=== PATIENT | male | born 1980 | race Caucasian/White ===

== ENCOUNTER 2016-10-22 18:24 | Emergency (ER) | payer MEDICAID, OTHER ==
[~2016-10-22] VITALS: Ht 190.5 cm; Wt 95.5 kg
[~2016-10-22 18:24] MED LIST: DOCU50CA2 PO; INSLIS SUBQ; INSU100V7 SUBQ; OXYC5TAB72 PO; SERT50TA9 PO
[2016-10-22 18:34] VITALS: BP 117/84; PULSE 98; RESP 14; O2SAT 97
--- NOTE | 2016-10-22 19:15 | ED.REPORT ---
HPI-General Illness Date of Service Oct 22, 2016 ED Provider: Nader Brown DO Patient is a 36 year old male with a history of diabetes who presents to the ED stating that he needs fast acting insulin. The patient reports that he was at Crisis who told him he needed Humalog and a basil. He states he doesn't have a basil anymore due to the police confiscating it after being arrested. Patient has no other complaints at this time Nursing Notes Stated Complaint: NEEDS INSULIN & BASIL Chief Complaint: General Complaint Nursing Notes Reviewed: Yes Allergies: Coded Allergies: Sulfa (Sulfonamide Antibiotics) (Verified Allergy, Severe, RASH AND AIRWAY PROBLEMS, 02/04/15) Scheduled Insulin Glargine (Lantus U100 Insulin Vial) 100 Unit/Ml Vial 30 UNIT SUBQ BID continue with current basil insulin 30 units bid. Insulin Human Lispro (HumaLOG U100 Insulin Vial) 100 Unit/Ml Unit 0 SUBQ TID- INSULIN Check blood sugars before meals and at bedtime. Use correction factor only before meals. Blood Sugar Lispro Correction: <151, 0 units; 151-175, 1 unit; 176-200, 2 units; 201-225, 3 units; 226-250, 4 units; 251-275, 5 units; 276-300 , 6 units; 301-325, 7 units; 326-350, 8 units; 351-375, 9 units; 376-400, 10 units; >400, 12 units. Sertraline HCl (Sertraline) 50 Mg Tablet 50 MG PO DAILY Scheduled PRN Docusate Sodium (Colace) 50 Mg Capsule 50 MG PO BID PRN PRN For Constipation oxyCODONE (oxyCODONE) 5 Mg Tablet 5 MG PO Q4H PRN PRN For Pain General Time Seen by MD: 19:15 Chief Complaint Other (hyperglycemia) Hx Obtained From: Patient Arrived By: Walk-in Sudden in Onset?: Yes Onset Occurred: 1 week ago Context of Onset: Medication reaction Severity: Current: No pain currently Similar Sx Previous: Yes Past Medical History Past Medical History 1. Type 1 diabetes mellitus with recent admissions for diabetic ketoacidosis. 2. Recent soft tissue infections requiring IV antibiotics. 3. History of MRSA colonization. 4. History of rash secondary to SULFA drugs. Reports: Diabetes mellitus Past Surgical History hand and inguinal hernia Smoking History Former Smoker Social History Alcohol Use: "Social" Drug Use: Denies drug use, In recovery, Other Occupation lives with girlfriend and works at the [employer] Ambulatory Status Independent Review of Systems +out of insulin Full Review of Systems Constitutional: Denies: Chills, Fever Respiratory: Denies: Non-productive cough, Shortness of breath GI: Denies: Diarrhea, Vomiting Skin: Denies Itching, Denies Rash Neurologic: Denies: Numbness, Weakness Complete sys rev & neg: except as marked. Physical Exam Vital Signs Vital Signs Date Time Temp Pulse Resp B/P Pulse Ox O2 Delivery O2 Flow Rate FiO2 10/22/16 22:30 94 121/81 98 Room Air 10/22/16 18:34 37.1 98 14 117/84 97 Room Air Initial VS: Reviewed General/Constitutional: Awake, Alert, No acute distress Head / Eyes: Atraumatic, Normocephalic, PERRL, EOMI Respiratory / Chest: Atraumatic, Breath sounds NL, Breath sounds = bilat, No respiratory distress Cardiovascular: Heart rate NL, Regular rhythm, Heart sounds NL Upper Extremities Upper Extremity / MS: Atraumatic, Full range of motion Skin: Atraumatic, Color NL, No rash, Warm, Dry Neurologic: Oriented X3, Speech NL, No motor deficits, No sensory deficits Psychiatric: Affect NL, Mood NL Re-Eval/Medical Decision Time of Eval: 21:40 Re-Evaluation/Progress Note: Discussed plan to nut picker insulin after discharge and plan for insulin here. Patient understands and agrees to plan. All questions were addressed. Time of Eval: 22:16 Re-Evaluation/Progress Note: Patient blood sugar is lowering. Plan to discharge. Patient understands and agrees. All questions were addressed Counseled Regarding: Diagnosis, Need for follow-up, When/why to return to ED Discharge & Departure Primary Impression: Hyperglycemia Additional Impression: Medication refill Disposition: Home Discharge Condition All VS Reviewed: Yes Condition: Stable Patient Instructions: Diabetic Hyperglycemia (ED), Type 1 Diabetes in Adults ( ED) Additional Instructions: Use the Humalog sliding scale as directed. You were given insulin in the ED today, which has helped lower your blood sugar level. You can have the cab take you to the pharmacy to nut picker your prescription before returning to Crisis. Follow up with your primary care physician next week. Return to the emergency department if you develop any new or concerning symptoms. Referrals: [facility] Scribe Attestation Portions of this note were transcribed by Carolyn Moreno. I, Dr. Brown personally performed the history, physical exam and medical decision-making; I reviewed and confirmed the accuracy of the information in the transcribed note. Signed by: Carolyn Monique, 10/22/16 copies to: [facility] Nader Brwon DO Oct 22, 2016 19:15 Barbi Moreno Oct 22, 2016 19:24
[2016-10-22] MEDS ORDERED: Insulin Human REGular 300 Unit/3 mL Inj SUBQ ONE ×2 (20:00→20:15)
[2016-10-22] MEDS ORDERED: Insulin Human REGular-Omnicell 100 Unit/mL SUBQ ONE (21:25)
[2016-10-22 22:30] VITALS: BP 121/81; PULSE 94; O2SAT 98
== END 2016-10-22 22:20 | disposition home or self-care (01) ==
LOC: SED 18:24
DX: E11.65 Type 2 diabetes mellitus with hyperglycemia (principal); Z76.0 Encounter for issue of repeat prescription; Z87.891 Personal history of nicotine dependence; Z79.4 Long term (current) use of insulin; Z88.2 Allergy status to sulfonamides
CPT/HCPCS: 82948; 99284; J1815

== ENCOUNTER 2016-11-26 01:52 | Inpatient (IN) | payer OTHER ==
[~2016-11-26] VITALS: Ht 190.5 cm; Wt 93.5 kg
[~2016-11-26 01:52] MED LIST changes: +OXYC-530 PO; -OXYC5TAB72 PO
[2016-11-26 03:40] VITALS: BP 139/79; PULSE 98; RESP 16; O2SAT 98
[2016-11-26] MEDS ORDERED: Polyethylene Glycol (PEG) 17 Gm Powder PO PRN (04:35)
[2016-11-26] MEDS ORDERED: 0.9% Sodium Chloride 1,000 ML IV SCH (04:35)
[2016-11-26] MEDS ORDERED: Alum-Mag Hydrox-Simeth 30 mL Suspension PO PRN (04:35)
[2016-11-26] MEDS ORDERED: Vancomycin Dose per Pharmacist XX ONE (04:35)
[2016-11-26] MEDS ORDERED: Ondansetron 2 mg/mL 2 mL Inj IVPUSH PRN (04:35)
[2016-11-26] MEDS ORDERED: Azithromycin Inj 500 MG in Dextrose 5% w/Vial Mate 250 ML IV SCH (05:00)
[2016-11-26] MEDS ORDERED: cefTRIAXone Inj 2,000 MG in Dextrose 5% Minibag Plus 50 ML IV SCH (05:00)
--- NOTE | 2016-11-26 05:04 | PCM.HPMED ---
Subjective Date of Service Nov 26, 2016 Primary Provider: Admitting Physician: Umang Baum MD Primary Care Physician: Other,Physician Attending Physician: Umang Baum MD Chief Complaint: Penile pain History of Present Illness: 36-year-old male with a past medical history of type I diabetes and IV drug abuse most recently with methamphetamine, but history of heroin use as well, presents to the emergency department at [facility] due to penile pain, swelling, tenderness and erythema that started 2 days ago after sleeping with a "cock ring "on throughout the night. Patient states that he fell asleep with the ring in place and when he awoke his penis was discolored. Patient delayed presenting for medical treatment as he felt this would wear off. States that has been difficult to pass urine and that is getting progressively worse. He also states that there is pus coming from the end. He denies fever, chills, nausea, vomiting, diarrhea, or other systemic symptoms of infection. He does endorse some minor lower abdominal discomfort. Patient states that he has had 20 partners in the last month is unsure if any had STDs, exclusively with women. He states his never had an STD although he has been treated for unconfirmed chlamydia. Denies history of HIV or hepatitis C. His last injection was couple of days ago and included methamphetamine. He states he turned to methods to get off of Suboxone which she is to get off of heroin Patient was discussed with Dr. Lacy who agreed to see the patient. The patient was not transferred to [facility] for ongoing treatment. Blood work is located in the chart and below. Sodium of 138, potassium 3.8, chloride of 101, bicarbonate of 25, glucose of 290 , BUN of 22, creatinine 1.24 Lactic acid 1.4 Drug screen positive for methamphetamine, amphetamine, and THC WBC of 9, hemoglobin of 14.9, hematocrit of 42.6, platelets of 239, neutrophil percent is 70.5 Review of Systems: Complete review of systems performed; pertinent positives and negatives per history of present illness, all other systems reviewed and are negative Allergies Coded Allergies: Sulfa (Sulfonamide Antibiotics) (Verified Allergy, Severe, RASH AND AIRWAY PROBLEMS, 02/04/15) PMH Type I diabetes Hypertension IV drug abuse with heroin/methamphetamine Marijuana dependence Surgical History No past surgical history Family History History of substance abuse Social History Hx Alcohol Use: Yes Hx Substance Use: Yes (positive for marijana and meth) Hx Tobacco Use: Yes Smoking Status: Current Every Day Smoker (10 cigarettes a day as well as "too much marijuana"), Former Smoker Exam Vital Signs Vital Sign - Last Date Time Temp Pulse Resp B/P Pulse Ox O2 Delivery O2 Flow Rate FiO2 11/26/16 03:40 36.8 98 16 139/79 98 Room Air Exam General: Age-appropriate male in no acute distress HEENT: PERRLA, EOMI, nonicteric, membranes moist Lymph: No lymphadenopathy Cardio: Regular rate and rhythm no murmurs rubs or gallops Respiratory: CTA bilaterally, no wheezes, no crackles Abdomen: Soft, positive bowel sounds, mild tenderness on palpation in the lower abdomen Extremities: No edema, 4 x 4 strength, sensation intact Psych: Appropriate mood and affect Neuro: CN II through XII grossly intact, sensation intact throughout Skin: No rash : Patient's penis is swollen and erythematous diffusely; mild necrotic circumferential ring around the base of the penis; small amount of pus approximately urethra; tender to touch Lab and Diagnostics X-Rays, CTs and MRIs CT pelvis with contrast was taken at [facility] but is not in [facility]. From transfer note the CT showed fluid accumulation at the base of the penis likely with a purulent drainage is coming from. Assessment & Plan 36-year-old male with history of type I diabetes, risky sexual practices, and IV drug abuse presents to the emergency department with 2 days of penile swelling, tenderness, purulence, and erythema. Cellulitis and possible abscess of the penis; present on admission; ongoing -This is all second to a cock ring which was left on for more than 12 hours -Patient also has appears foreskin, and the piercing was removed prior to [facility] -Risky sexual practices with more than 20 partners over the last 30 days -Dr. Lacy of urology was consultative from [facility] and agreed to see the patient; consultative placed -Concern for STD-RPR, GC NAAT and culture; HIV all pending -Blood cultures -Started on vancomycin, ceftriaxone, and azithromycin -Consider ID consult in a.m. Type I diabetes; present on admission; ongoing -Last A1c was unknown; pending -Home medication: -Lantus 30 in the evening -Medium-dose correctional with 5 units prandial insulin or per patient -Diabetic diet once evaluated by Dr. Lacy Hypertension-currently controlled; no listed medications Depression-continue sertraline Disposition: Patient is being admitted to inpatient status with expected length of stay greater than two midnights due to to severity of presentation, duration of treatment, and risks of adverse events disposition Pain Evaluation: Adequate Pain Control VTE Mechanical Devices: Intermittant Pneumatic CD Resuscitation Status: CPR: Attempt Resuscitation Attending Statement The patient was seen and examined together with Dr. Hartmann on 11/26 and I agree with the history, exam and plan as outlined in the note above. Zbigniew Hartmann DO Nov 26, 2016 05:04 Umang Baum MD Nov 26, 2016 19:05
[2016-11-26] MEDS ORDERED: Glucose 40% Oral Gel 15 Gm Tube PO PRN (05:15)
[2016-11-26] MEDS ORDERED: Dextrose 10% 250 ML IV PRN (05:20)
[2016-11-26] MEDS ORDERED: Vancomycin Inj 2,000 MG in 0.9% Sodium Chloride 500 ML IV ONE (05:30)
[2016-11-26] MEDS: 0.9% Sodium Chloride 1,000 ML IV SCH ×3 (06:24→21:05)
[2016-11-26 06:59] LABS: BASOPHILS % (AUTO) 0.4 % (0-3); EOSINOPHILS % (AUTO) 1.6 % (0-5); MONOCYTES % (AUTO) 8.7 % (4-12); Mean Corpuscular Hemoglobin 30.8 pg (27.0-35.0); NEUTROPHILS % (AUTO) 72.8 % (40-74); Platelet Count 222 bil/L (150-400)
[2016-11-26] MEDS: Sodium Chloride LOK Flush 10 mL Syringe IVFLUSH SCH ×3 (08:30→23:44)
[2016-11-26] MEDS: Insulin LISPRO 300 Unit/3 mL Inj SUBQ SCH ×4 (09:30→21:17)
[2016-11-26 09:57] VITALS: BP 116/77; PULSE 75; RESP 18; O2SAT 98
[2016-11-26 10:01] VITALS: BP 116/77; PULSE 98; RESP 18; O2SAT 98
--- NOTE | 2016-11-26 10:37 | NUR ---
Void/PVR Pt stating having not voided since CLAIM MANAGER, Per Dr. Lacy office wanting PVR. At 1015, pt up to BR, voided per urinal 575. PVR of 25cc noted. Callback to Dr. Lacy office, Ania GUERRERO took message of above at 1030. Return call by Ania GUERRERO, no surgical intervention at this time. Pt okay to eat. Care continues. Addendum: 11/26/16 at 1836 by RUSLAN BEAVER RN Pt continues to state no issue with voiding, Up to BR - urinal.
[2016-11-26 14:38] VITALS: BP 131/75; PULSE 82; RESP 18; O2SAT 100
[2016-11-26] MEDS: oxyCODONE-Acetamin 5-325 mg Tablet PO PRN ×2 (15:27→21:04)
--- NOTE | 2016-11-26 15:47 | CONS ---
[address] [address] CONSULTATION REPORT PATIENT: SHANAE SHEETS : 1980 MR#: [id number] ADMIT: 11/26/2016 JOB ID: [id number] DATE OF SERVICE: 11/26/2016 INFECTIOUS DISEASE CONSULTATION: I thank Dr. Rubin for this timely consult. REASON FOR CONSULTATION: Penile cellulitis. HISTORY OF PRESENT ILLNESS: The patient is a 36-year-old gentleman with type 1 diabetes as well as a history of hypertension and polysubstance abuse including parenteral IV drug use. The patient reports he was briefly admitted to the [facility] yesterday and then transferred to this facility for urologic evaluation. His problems began the day before when he placed a plastic ring around the base of his penis and then fell asleep for 12 hours or so. When he awakened, he noticed that his penis distal to the obstructing plastic ring was exquisitely tender, swollen and erythematous and there was some drainage from around the site where he had placed the ring. He was able to get the ring off himself fortunately and then presented to the [facility] for evaluation where he was found to have some drainage from around the base of the penis at the site where the ring had been placed. This drainage was cultured. It was also noted that there may have been some urethral discharge but the patient denies that had occurred. He had no systemic complaints such as fevers, chills or sweats and no pulmonary or GI symptoms but he was transferred to [facility] primarily because of the need for urologic evaluation and possible intervention. Urology has subsequently evaluated the patient and sees no reason for surgical debridement or other procedure. The patient tells us since the ring has been removed and he has been receiving antibiotics, there has been some improvement though he still has considerable pain around the base of his penis and it is difficult and somewhat impairing when he tries to walk. Still no fevers, chills, sweats or overt signs of infection. PAST MEDICAL HISTORY: 1. Type 1 diabetes x4 years only. 2. Hypertension. 3. Polysubstance abuse with history of IV heroin, IV methamphetamine, marijuana and other substances. 4. Chronic cigarette and marijuana smoker. SOCIAL HISTORY: The patient reports that he uses multiplicity of substances including alcohol, heroin, marijuana, methamphetamine and nicotine. He is an everyday cigarette smoker as well as marijuana smoker. He leads a somewhat itinerant lifestyle and has currently been recently been living with friends. He also reports that he is very promiscuous and has had large numbers of new sexual partners over the course of the past year but despite that has never been aware of having any STDs and denies being HIV positive. FAMILY HISTORY: Negative for TB in first or second degree relatives. REVIEW OF SYSTEMS: No headache, visual change, sore throat, cough, shortness of breath, chest pain, nausea, vomiting or diarrhea. No swollen joints. No neurologic symptoms. Remainder of the review of systems negative. PHYSICAL EXAMINATION: Reveals an afebrile gentleman, temperature 36.6, pulse 82, respiratory rate 18, blood pressure 131/75. He is saturating 100% on room air and he is in no apparent distress. Mental status is quite clear. He is calm and composed. Head without trauma. No temporal wasting. No conjunctivitis, sinus tenderness or oropharyngeal lesions. The patient's neck is supple. No adenopathy. Lungs clear. Cardiac tones: Regular rate and rhythm. Abdomen: Soft, nontender. No hepatosplenomegaly. No suprapubic fullness. The patient's penis is notable in that there is a brown ring circumferentially near the base of the penis and this area is very tender though I do not appreciate any purulence. The entire penis distal to the brown ring is erythematous but not terribly tender nor warm to the touch. There is no urethral discharge to be seen at this point. The testes appear normal. There is no inguinal adenopathy. The remainder of the examination including his joints negative. There is no evidence for cellulitis or any drug rash consistent with syphilis or any other infectious process. Neurologically, the patient is intact. LABORATORIES: Include white count 8100, and normal differential. Creatinine 1.01. Procalcitonin 0.36. RPR, hep B, hep C and HIV all pending. Blood cultures are negative. We called [facility] in [place] as they have received a sample that was provided yesterday by [facility] emergency department from the base of the penis on this patient. The culture is too young to read but the Gram stain showed polys and gram-positive cocci in pairs and chains suggesting a streptococcal or enterococcal infection. IMAGING: No imaging has been done at this facility. IMPRESSION: This is an interesting case of a young man with a penile ring that was left in place for too long and he has now developed at a minimum cellulitis with some minimal skin breakdown in a circumferential pattern around the base of the penis. He seems nontoxic and I am not concerned about a necrotizing soft tissue infection such as Sharmaine gangrene in this type 1 diabetic, but he still requires some close observation until we have a better handle on what the microorganisms involved might be. RECOMMENDATIONS: 1. Will consolidate his azithromycin, vancomycin and ceftriaxone to just ceftaroline 600 q.12. 2. He has already received 500 mg of IV azithromycin and I am uncertain what this is for, but it may be for empiric treatment of Chlamydia in which case we could switch him to oral to finish a 1 g total dose and be done with that part of his therapy. 3. We await the many appropriate serologies. 4. The patient should have a urine test for gonorrhea and chlamydia. 5. Will continue to follow this complex case with you.
[2016-11-26] MEDS: Ceftaroline Inj 600 MG in Dextrose 5% 250 ML IV SCH (17:07)
--- NOTE | 2016-11-26 17:12 | NUR ---
Social Work- Initial Assessment/Multidisciplinary Rounds Data: See attached initial assessment. Pt is a 36 year old male admitted for penile cellulitis per H&P. Pt's insurance is [employer]. Pt's PCP is Tony Barrett in [place]. Pt's readmit risk score is 4/8 high risk. Pt discussed in multidisciplinary rounds, Substance Abuse order acknowledged. No additional d/c needs identified in rounds. See Substance Abuse Assessment in additional note. SW met with pt at bedside to discuss discharge plan, SW role explained. Pt resides in [place] with friends in a duplex. Pt works at [employer]. Pt does not drive. Pt is independent at baseline. Pt has no DPOA on file, declined DPOA information. Pt's friends anticipated to pick pt up at d/c. SW wrote phone number and plan on whiteboard. Pt declined d/c planning checklist at bedside. SW will continue to follow. Assessment: Pt who is independent at baseline. Plan: Pt likely to d/c home with his friends to transport via POV. SW will continue to follow for d/c planning needs. SAE Amin Addendum: 11/26/16 at 1717 by DEYVI DIAS SS Amended: Links added.
--- NOTE | 2016-11-26 17:17 | NUR ---
Social Work- Substance Abuse Assessment Current Circumstances: Pt admitted to hospital for penile cellulitis per H&P. Pt has history of THC, methamphetamine use, heroin. Substance Abuse order received. History of Substance Use: Pt has history of methamphetamine, heroin, etoh, and THC use for "majority" of pt's life. Last use was two days ago. Pt's tox screen was + for methamphetamine, amphetamine, THC. History of Treatment Programs: Pt has history of [facility] [place] Pt exited inpatient treatment four months ago. History of Withdrawal Symptoms: Pt denies any history of withdrawal symptoms, states that he does not use opiates and "they scare him" (despite reported history of heroin). Pt has not been experiencing any withdrawal symptoms during this hospitalization. History of Sobriety and Supports: Pt declines any major periods of sobriety during his life. Pt passively identifies the friends that he is currently living with as supports. He does state they are "good influences." Pt's perception of use: Pt is contemplating change. Pt realizes that he needs treatment support to achieve sobriety. Pt has insight that his use is negatively impacting his career and life goals. Pt declined any assistance in accessing inpatient or outpatient treatment. Mental Health: Pt declined any active SI or HI at this time. Referrals: Pt declined any CD resources at bedside, states that he is already familiar with them. SW encouraged pt to contact if any additional needs arise or he would like resources. Pt agreeable. Pt confirms that his friends will transport him home at discharge. [facility] continues to follow. Marissa Sosa MSW
[2016-11-26 19:40] VITALS: BP 127/75; PULSE 94; RESP 18; O2SAT 99
[2016-11-26] MEDS: Insulin GLARgine 100 Unit/mL Syringe SUBQ SCH (21:17)
--- NOTE | 2016-11-26 23:45 | NUR ---
Insomnia Pt. reported inability to sleep. Cristin GIRON paged. Cristin GIRON ordered Melatonin PO for insomnia.
--- NOTE | 2016-11-26 23:59 | CONS ---
[address] [address] CONSULTATION REPORT PATIENT: SHANAE SHEETS : 1980 MR#: [id number] ADMIT: 11/26/2016 JOB ID: [id number] DATE OF SERVICE: 11/26/2016 REQUESTING PHYSICIAN: Kendrick Rubin MD HISTORY: The patient is a 36-year-old, white male with four year history of type 1 diabetes mellitus, hypertension and a history of polypharmacy substance abuse in the past including alcohol, marijuana, methamphetamine, cigarettes and heroin who was transferred urgently during the night from [facility] for further evaluation and management of penile trauma. He was experiencing his usual health until November 25, 2016. He had been sexually active with a plastic penile ring. He apparently fell asleep for some 12 hours and upon awakening he had severe penile pain, swelling, tenderness. He was able to manage getting the ring off and then presented to the [facility] ED for further evaluation and management. It was noted that he had a small amount of white light cream discharge at the base of his penis. Because of ongoing pain and uncertainty about viability of tissue and secondary infection in this young diabetic, he was transferred here. I saw him earlier this day and honestly had just not had a chance to get an appropriate detailed note documented. Since admission, he has received azithromycin and vancomycin, and Dr. Lang was consulted who has now discontinued all but Ceftaroline 600 mg q.12 h. Further cultures and serologies are pending. Initial swabs from skin surface at the base of the penis show polys and gram-positives. There is really no significantly compromised skin. I doubt the culture will prove to grow a pathogen of interest. He denies other personal history other than childhood circumcision. ALLERGIES: None. MEDICATIONS: On admission, insulin and sertraline. PAST MEDICAL HISTORY: 1. Hypertension. 2. Polypharmacy substance abuse. 3. Type 1 diabetes mellitus. 4. Chronic cigarette smoker. PAST SURGICAL HISTORY: Circumcision. PHYSICAL EXAMINATION: He is a well-developed, nourished fellow in mild distress laying back in bed. Head and neck exam remarkable for a very large elaborate tattoo on his neck. Of note, he has numerous other body tattoos. Chest: Equal, clear and unlabored bilaterally. Heart rate is regular. Abdomen is scaphoid, soft, and benign. External genitalia: Circumcised penis. It is swollen, a bit indurated, erythematous, warm. There is a small amount of scant superficial discharge at the base of penis in a light brown line of otherwise intact penile shaft skin. Scrotum unremarkable. Perineum clear. Extremities: No pallor, edema, cyanosis or clubbing. Multiple tattoos. LABORATORIES: Including white blood cell count of 8. PLAN: I will follow the clinical exam and leave the serologies and further antibiotic recommendations to the expertise of Dr. Lang. His postvoid residual is less than 25 cc, therefore I do not think he has any acute urethral injury or issues now, but I will follow up with him as he is at risk of a subsequent urethral stricture in the distal bulbar proximal penile segment.
[2016-11-27 00:02] LABS: APPEARANCE,URINE CLEAR (CLEAR,HAZY); COLOR,URINE YELLOW (YELLOW); OCCULT BLOOD,URINE NEGATIVE (NEGATIVE)
[2016-11-27] MEDS: oxyCODONE-Acetamin 5-325 mg Tablet PO PRN ×4 (01:44→20:29)
[2016-11-27 04:07] LABS: Hepatitis A Antibody IgM Negative (Negative); Hepatitis B Core Antibody IgM Negative (Negative)
--- NOTE | 2016-11-27 04:19 | NUR ---
Pain/ Swelling Pt. reports pain in penile area. Penis is elevated on pillows, and ice was placed to decrease pain and inflammation. 2 Percocet PO given for pain. Pt. reports pain is intermittent, but can be severe at times. Will continue to monitor.
[2016-11-27] MEDS: 0.9% Sodium Chloride 1,000 ML IV SCH ×4 (04:35→20:35)
[2016-11-27] MEDS: Ceftaroline Inj 600 MG in Dextrose 5% 250 ML IV SCH ×2 (04:38→16:14)
[2016-11-27 04:40] VITALS: BP 130/88; PULSE 81; RESP 16; O2SAT 99
[2016-11-27] MEDS: Sodium Chloride LOK Flush 10 mL Syringe IVFLUSH SCH ×2 (08:30→16:30)
[2016-11-27] MEDS: Insulin LISPRO 300 Unit/3 mL Inj SUBQ SCH ×4 (09:15→21:45)
[2016-11-27 09:35] VITALS: BP 132/84; PULSE 87; RESP 18; O2SAT 100
--- NOTE | 2016-11-27 11:00 | PCM.PNMED ---
Subjective Date of Service Nov 27, 2016 Subjective Denies any new issues/complaints Exam Vital Signs Vital Sign - Last Date Time Temp Pulse Resp B/P Pulse Ox O2 Delivery O2 Flow Rate FiO2 11/27/16 09:35 87 18 132/84 100 Room Air 11/27/16 04:40 36.5 Intake and Output 11/26/16 11/26/16 11/27/16 Cumulative From/Thru 15:00 23:00 07:00 11/26/16 03:40 - 11/27/16 05:44 Intake Total 176 ml 2637 ml 2045 ml 4858 ml Output Total 1115 ml 1150 ml 2265 ml Balance 176 ml 1522 ml 895 ml 2593 ml Intake Oral 950 ml 800 ml 1750 ml IV Total 176 ml 1687 ml 1245 ml 3108 ml Output Urine Total 1115 ml 1150 ml 2265 ml # Bowel Movements 0 0 0 General: Alert, Cooperative, No Acute Distress Head: Normal Eyes: PERRLA, EOMI, Scleral Anicteric Nose: Mucous Membr Moist/[place] Mouth: Mucous Membr Moist/[place] Neck: Supple Chest & Lungs: Chest Wall Normal, Clear to auscultation & percussion Cardiovascular: Regular Rate/Rhythm Pulses: NL carotid, radial, femoral, DP, PT Abdomen: Non-tender, Non-distended, Normoactive bowel tones, Soft Genitialial: Abnormal (penis distal to the brown ring is erythematous) Extremities: No cyanosis/clubbing/edma bilat Neurological: Grossly Neurologically Intact, Normal Speech Additional Information: Psych: Calm, appropriate IVs and Medications Medications Reviewed: Medications were reviewed in detail Lab and Diagnostics Result Diagram: 11/26/16 0533 11/26/16 0533 X-Rays, CTs and MRIs CT pelvis with contrast was taken at [facility] but is not in [facility]. From transfer note the CT showed fluid accumulation at the base of the penis likely with a purulent drainage is coming from. Assessment & Plan 36-year-old male with history of type I diabetes, risky sexual practices, and IV drug abuse presents to the emergency department with 2 days of penile swelling, tenderness, purulence, and erythema. # Acute Cellulitis of the penis; present on admission; ongoing - Due to a penis ring which was left on for more than 12 hours - Patient also has appears foreskin, and the piercing was removed prior to [facility] - Risky sexual practices with more than 20 partners over the last 30 days - Appreciate ID and urology consults. Will followup with recs - Continue with IV Ceftaroline per ID recs. - Followup pending cultures and serologies # Type I diabetes; present on admission; ongoing - HgA1C - Continue with home dose Insulin. - Medium-dose correctional with 5 units prandial insulin or per patient # Reported history of Hypertension - Currently controlled # History of Depression. Stable. - Continue sertraline Dispo: Likely tomorrow pending culture/serology results and further recs by ID VTE Mechanical Devices: Intermittant Pneumatic CD Resuscitation Status: CPR: Attempt Resuscitation Kendrick Rubin Nov 27, 2016 11:00
--- NOTE | 2016-11-27 11:41 | PROG NOTE ---
[address] [address] PROGRESS NOTE PATIENT: SHANAE SHEETS : 1980 MR#: [id number] ADMIT: 11/26/2016 JOB ID: [id number] DATE: 11/27/2016 INFECTIOUS DISEASE FOLLOW UP NOTE: REASON FOR FOLLOW UP: Infection at the base of the penis secondary to retain plastic ring. INTERVAL HISTORY: This morning the patient is very difficult to arouse. When aroused he just basically mumbles answers to questions but he states he has no fevers, chills, shortness of breath, nausea, vomiting or diarrhea. He states he still has pain at the base of his penis. PHYSICAL EXAMINATION: Reveals an afebrile, difficult to arouse gentleman. He is awake and alert when roused, but then almost immediately goes back to sleep. Temp 36.5, pulse 87, respiratory rate 18, blood pressure 132/84. He is saturating well on room air. He is in no acute distress but he is very tired. Lungs are clear. Cardiac tones without change. Abdomen benign. The penis has a brown ring around the base of it and along that brown ring there is tenderness distally. His penis is somewhat swollen in a general sort of way, but is not tender beyond the circumferential brown ring area. LABORATORIES: Include yesterday's white count of 8100. Interestingly RPR is negative. Hep B and hep C negative and HIV negative. Gonorrhea and chlamydia are pending. Creatinine 1.01. We called the lab at [facility] in [place] where the culture was sent up from the stool in the emergency department. It is growing beta strep as well as Staph aureus and a coliform. Susceptibilities and other data on all three organisms are currently pending. IMPRESSION: This patient has a complicated polymicrobial infection of the base of his penis. At this point, I think we will continue with our current broad-spectrum antibiotic coverage before making any final decisions on outpatient antibiotics. RECOMMENDATIONS: 1. Will continue with ceftaroline which should provide reasonably good coverage for all these three organisms. 2. Will continue to follow this patient with you through tomorrow and then hopefully with some improvement we can discharge the patient on oral antibiotics or perhaps oritavancin.
--- NOTE | 2016-11-27 12:24 | NUR ---
Pain Patient reported 7/10 penile pain. 2 tabs of Percocet and stool softener given. Denies nausea at this time. Patient repositions self for comfort. Call light and tray table within reach. Will continue to monitor patient hourly.
[2016-11-27 14:54] VITALS: BP 146/91; PULSE 90; RESP 20; O2SAT 98
--- NOTE | 2016-11-27 16:06 | NUR ---
Diogenes-marbella tyson MD at regarding increased redness site on RLE and morphine on eMAR. Awaiting response.
[2016-11-27 20:40] VITALS: BP 156/96; PULSE 80; RESP 18; O2SAT 98
[2016-11-27] MEDS: Insulin GLARgine 100 Unit/mL Syringe SUBQ SCH (21:38)
--- NOTE | 2016-11-28 00:18 | NUR ---
Pain/Withdrawal/Sleep Pt c/o pain 8 to 9 out of 10 to penile/scrotum area. Penis is swollen, red, with white/yellow blister to posterior region and bruising indentations circumferentially. Pt also has red raised area to right lopez, possibly due to IVDA, it has been marked with a sharpie to monitor extent. Pt requesting Ativan for s/s IVDA withdrawal. Was given one time dose 2mg IV Ativan prev night which pt states helped. [facility] hospital notified, no new orders at this time. Pt appears very anxious, shaky, rapid thoughts. No c/o hallucinations at this time. Ice applied to ben area and towel placed to elevate per pt request/MD recommendations. Addendum: 11/28/16 at 0026 by KARRIE PEREZ RN 2mg IV Ativan ordered by night hospitalist and admin by YOLANDA. Continue to monitor pt behaviors, pain.
[2016-11-28] MEDS: Sodium Chloride LOK Flush 10 mL Syringe IVFLUSH SCH ×3 (00:34→16:30)
[2016-11-28] MEDS: Ceftaroline Inj 600 MG in Dextrose 5% 250 ML IV SCH ×2 (03:43→16:51)
[2016-11-28 05:55] VITALS: BP 145/81; PULSE 74; RESP 18; O2SAT 98
[2016-11-28 06:29] LABS: BASOPHILS % (AUTO) 0.4 % (0-3); EOSINOPHILS % (AUTO) 2.5 % (0-5); MONOCYTES % (AUTO) 8.3 % (4-12); Mean Corpuscular Hemoglobin 30.5 pg (27.0-35.0); Mean Corpuscular Volume 89.4 fL (81-100); NEUTROPHILS % (AUTO) 56.2 % (40-74); Platelet Count 217 bil/L (150-400)
--- NOTE | 2016-11-28 10:45 | NUR ---
Zoloft Pt states, "Haven't taken Zoloft in 2 years." Refused AM dose; care ongoing.
[2016-11-28] MEDS: Insulin LISPRO 300 Unit/3 mL Inj SUBQ SCH ×4 (10:48→21:19)
--- NOTE | 2016-11-28 11:52 | NUR ---
Wound Care 36 yo male admitted with penis wound secondary to sexual device (ring) left in place over prolonged period of time (>12 hrs) in the setting of diabetes and IVDA. While examination of his genitalia does reveal swelling and inflammation of his pineal shaft the ulcerations due to pressure appear to be less than full thickness with the majority of the ulcer present on the inferior border of his shaft measuring approx 3 cm L x 6 cm W x 0.1 cm D. wound base is fibrinous and drainage is serous and minimal, the wound is circumferential but superior portion of wound is completely superficial and scabbed over. Wound is cleaned and patient instructed in application of xeroform dressing to be applied daily, instructed patient to shower and clean with soap and water daily then redress with xeroform only. Do not recommend hydrogen peroxide application any further as wound is generally clean. Patient also to refrain from sexual activity or further use of ring until ulcerations have healed.
--- NOTE | 2016-11-28 11:56 | NUR ---
spiritual care: pt request visit attempt; left note and briefly spoke with pt who was very drowsy. will continue to follow
--- NOTE | 2016-11-28 12:24 | PROG NOTE ---
[address] [address] PROGRESS NOTE PATIENT: SHANAE SHEETS : 1980 MR#: [id number] ADMIT: 11/26/2016 JOB ID: [id number] DATE: 11/28/2016 INFECTIOUS DISEASE FOLLOWUP NOTE: REASON FOR FOLLOWUP: Infected penis. INTERVAL HISTORY: The patient remains relatively somnolent and is always difficult to rouse. He denies having ongoing fevers, chills, or sweats. He has no pulmonary or GI symptoms of note. He continues to complain of pain, not only around the base of the penis where the ring was left in place too long, but also the entire penile shaft. He has no urethral discharge or trouble urinating though. PHYSICAL EXAMINATION: Reveals an afebrile gentleman, temperature 36.7, pulse 74, respiratory rate 18, blood pressure 145/81. He is saturating well on room air. He is in no distress, but as mentioned he is somnolent and slow or uninterested perhaps in answering questions. Lungs, heart, and abdomen benign as before. His penis remains somewhat disconcerting. There is a ring around the base where there is brown tissue and up on the underside of the penis there are small areas of skin breakdown now, as well as some erythema which was not present yesterday. The entire penile shaft remains somewhat swollen perhaps, and has a bit of an erythematous cast to it, which does not appear normal. LABORATORIES: Include white count 5200. Creatinine 1.01. Procalcitonin 0.36. Those labs are 2 days old. We do not have any current ones. Gonorrhea and chlamydia are still pending, but HIV and hepatitis C are both negative. The cultures from the [facility] lab show MSSA and group B strep and E. coli. The E. coli susceptibilities are pending. IMPRESSION: This patient has suffered obviously a soft tissue infection of the penis at the base with some perhaps cellulitis or superficial infection spreading up the underside of the penis as well. He does not appear systemically ill. I discussed this case this morning with Dr. Lacy of Urology, as quite well as Manolo Stapleton of Wound Care, both of whom saw the patient today. Dr. Lacy was concerned that his exam is actually worsening rather than improving and he is the one who consulted wound management. He recommended we continue antibiotics and that local wound management be considered. He did not see any indication of abscess or reason for open surgery. The case was also discussed with Manolo Stapleton who recommended various dressings and vigorous washing in the shower to keep the area clean as the patient is discharged. From my point of view I am a bit concerned that it seems like the patient may be actually not going completely the right way at this point, despite our aggressive antibiotic therapy. Though he is not systemically ill, I think it may be reasonable to keep him at least one more day until we have final susceptibilities. RECOMMENDATIONS: 1. Will continue with ceftaroline. 2. Will reexamine the patient tomorrow and consider discharge antibiotics and options. Thank you very much. Note that this case was discussed with Dr. Rubin.
[2016-11-28] MEDS: 0.9% Sodium Chloride 1,000 ML IV SCH ×3 (12:35→22:27)
[2016-11-28 12:44] VITALS: BP 127/75; PULSE 78; RESP 20; O2SAT 97
--- NOTE | 2016-11-28 14:45 | NUR ---
Social Work- Readiness for Discharge/Multidisciplinary Rounds Data: EMR reviewed. Pt is on day 2 of hospitalization for penile cellulitis. Pt discussed in multidisciplinary rounds, ID is following pt. Wound Care has consulted on pt. Urology is following pt. Substance abuse assessment has been completed, pt declined outpt CD resources. No additional SW needs identified in rounds. Pt is likely to d/c home with friends to transport via POV. SW is following for d/c needs, no SW orders received at this time. Assessment: Pt who is independent at baseline. Plan: Pt likely to d/c home on PO abx, friends to transport via POV. SW is following for d/c needs, no SW orders received at this time. SAE Amin
--- NOTE | 2016-11-28 15:19 | PCM.PNMED ---
Subjective Date of Service Nov 28, 2016 Subjective Denies any new issues/complaints Exam Vital Signs Vital Sign - Last Date Time Temp Pulse Resp B/P Pulse Ox O2 Delivery O2 Flow Rate FiO2 11/28/16 12:44 36.3 78 20 127/75 97 Room Air Intake and Output 11/27/16 11/27/16 11/28/16 Cumulative From/Thru 15:00 23:00 07:00 11/26/16 03:40 - 11/28/16 06:39 Intake Total 1404 ml 1473 ml 7735 ml Output Total 1020 ml 3285 ml Balance 1404 ml 453 ml 4450 ml Intake Oral 600 ml 2350 ml IV Total 1404 ml 873 ml 5385 ml Output Urine Total 1020 ml 3285 ml # Bowel Movements 0 0 Exam General: Alert, Cooperative, No Acute Distress Head: Normal Eyes: Scleral Anicteric Nose: Mucous Membr Moist/[place] Mouth: Mucous Membr Moist/[place] Neck: Supple Chest & Lungs: Chest Wall Normal, Clear to auscultation bilat Cardiovascular: Regular Rate/Rhythm Abdomen: Non-tender, Non-distended, Normoactive bowel tones, Soft Genitialial: Abnormal (penis distal to the brown ring is erythematous) Extremities: No cyanosis/clubbing/edema bilat Neurological: Grossly Neurologically Intact, Normal Speech Psych: Calm, appropriate IVs and Medications Medications Reviewed: Medications were reviewed in detail Lab and Diagnostics Result Diagram: 11/28/16 0540 11/26/16 0533 X-Rays, CTs and MRIs CT pelvis with contrast was taken at [facility] but is not in [facility]. From transfer note the CT showed fluid accumulation at the base of the penis likely with a purulent drainage is coming from. Assessment & Plan 36-year-old male with history of type I diabetes, risky sexual practices, and IV drug abuse presents to the emergency department with 2 days of penile swelling, tenderness, purulence, and erythema. # Acute Cellulitis of the penis; present on admission; ongoing - Due to a penis ring which was left on for more than 12 hours - Foreskin piercing was reportedly removed prior to [facility] - Risky sexual practices with more than 20 partners over the last 30 days - Appreciate ID and urology consults. Will followup with recs - Continue with IV Ceftaroline per ID recs. - Followup pending cultures and serologies - Wound nurse consulted today to assess - Continue supportive care including IV Morphine prn # Type I diabetes; present on admission; ongoing - HgA1C 9.4 - Continue with home dose Insulin. - Medium-dose correctional with 5 units prandial insulin or per patient # Polysubstance abuse with history of IV heroin and IV methamphetamine dependence, marijuana and other substances abuse. Present on admission. - Monitor for signs or withdrawal - Social work referral - Continue with supportive care # Reported history of Hypertension - Currently controlled # History of Depression. Stable. - Continue sertraline Dispo: Likely tomorrow pending culture/serology results and further recs by ID VTE Mechanical Devices: Intermittant Pneumatic CD Resuscitation Status: CPR: Attempt Resuscitation Kendrick Rubin Nov 28, 2016 15:19
[2016-11-28 19:38] VITALS: BP 162/93; PULSE 76; RESP 16; O2SAT 97
[2016-11-28] MEDS: Insulin GLARgine 100 Unit/mL Syringe SUBQ SCH (21:18)
[2016-11-29] MEDS: Sodium Chloride LOK Flush 10 mL Syringe IVFLUSH SCH ×3 (00:25→16:30)
[2016-11-29 00:29] VITALS: BP 151/71; PULSE 94; RESP 18; O2SAT 96
--- NOTE | 2016-11-29 03:01 | NUR ---
Blood Glucose Pt HS blood sugar 494. Pt states "my blood sugar usually goes up when i'm on antibiotics." Pt is stable and asymptomatic. No s/s of hyperglycemia noted. Scheduled lantus and insulin lispro sliding scale admin per orders with no side effect noted. Pt BG recheck at 0240 and came to down to 143 with no s/s of hypoglycemia noted. Pt is resting comfortably in bed and call light w/in reach. Care continues.
[2016-11-29] MEDS: Ceftaroline Inj 600 MG in Dextrose 5% 250 ML IV SCH (03:58)
[2016-11-29 05:37] VITALS: BP 132/84; PULSE 54; RESP 18; O2SAT 98
[2016-11-29 07:15] LABS: Magnesium 1.9 mg/dL (1.6-2.6)
[2016-11-29] MEDS: Insulin LISPRO 300 Unit/3 mL Inj SUBQ SCH ×3 (08:00→17:58)
[2016-11-29] MEDS: 0.9% Sodium Chloride 1,000 ML IV SCH ×2 (08:01→12:35)
--- NOTE | 2016-11-29 08:28 | PROG NOTE ---
[address] [address] PROGRESS NOTE PATIENT: SHANAE SHEETS : 1980 MR#: [id number] ADMIT: 11/26/2016 JOB ID: [id number] DATE: SUBJECTIVE: Mild improvement in subjective complaints of pain and tenderness in the interval. He is largely minimally communicative. He is cooperative, however. He voices no new complaints or concerns. OBJECTIVE: Afebrile. Vital signs are stable. He continues to void with some discomfort, but no difficulty. He is lying comfortably in bed, in no distress. Abdomen is scaphoid, soft, benign. Genitalia: Penile induration, swelling, and tenderness are improved. There is increased purulent material on the skin surface in the region of the penile base. The scrotum remains benign. There is a superficial brown discoloration at the original position of the ring. The skin appears viable. LABORATORY DATA: Laboratories reviewed. No evidence of white count elevation. Some serologies came back negative, per Dr. Lang. Others pending. IMPRESSION: Superficial subcutaneous abscess, originally measuring about 1 x [address] from [facility]; likely has drained. PLAN: 1. Local wound care. I have requested wound nurse and team to evaluate for local care measures. In the meantime, I have ordered half-strength hydrogen peroxide b.i.d. cleansing. 2. Continue genital and penile elevation. 3. I have informed Dr. Mallorie Hua, who is on-call November 30, , and , of the patient's location and clinical status, as I spoke with Dr. Lang in this regard as well. I do not think there are indications for surgical intervention at this time. Likely local wound care and some sort of antibiotic coverage, and transition to outpatient would, in all likelihood, be successful. The patient may follow up with me post discharge for a followup examination with postvoid residual to assure there is lack of late stricture development.
[2016-11-29 12:40] VITALS: BP 147/89; PULSE 76; RESP 20; O2SAT 97
[2016-11-29] MEDS ORDERED: Amoxicillin-Clav 875-125 mg Tablet PO SCH (12:50)
[2016-11-29] MEDS ORDERED: Oritavancin Diphosphate 1,200 MG in Dextrose 5% 1,000 ML IV ONE (13:30)
--- NOTE | 2016-11-29 14:06 | PROG NOTE ---
[address] [address] PROGRESS NOTE PATIENT: SHANAE SHEETS : 1980 MR#: [id number] ADMIT: 11/26/2016 JOB ID: [id number] DATE: 11/29/2016 REASON FOR CONSULTATION: Penile infection. INTERVAL HISTORY: The patient reports overnight there has been some improvement. He has less pain around the base of his penis where the ring was applied too tight for too long. There is still some pain on the underside of the penis headed up towards the meatus, but overall it seems improved. He has not had any erections since this, and so he does not know about that functionality but he does note that he has no trouble with urinating and no urethral discharge, no fevers, chills, sweats. PHYSICAL EXAMINATION: Reveals an afebrile gentleman, in no acute distress. Temp 36.7, pulse 76, respiratory rate 20, blood pressure 147/89. He is in no acute distress. Lungs are clear. Cardiac tones normal. Abdomen benign. The penile circumferential inflammatory area continues with some skin breakdown around the base of the penis and some scant discharge. Up the underside of the penis, there is also some sloughing and some degree of skin breakdown there as well. No purulence is encountered and the overall degree of tenderness and erythema is much improved. LABORATORIES: Include a white count of 5200 yesterday, creatinine 0.94. Gonorrhea and chlamydia studies are pending. Remainder of his labs are negative. Remainder of his serologies are negative. MRSA screen of the nose was negative. Cultures performed at [facility] in [place] were followed up upon. The cultures grew finally MSSA group B Strep and a pansensitive E. coli. IMPRESSION/RECS 1. This patient is doing well and I think at this point, he can be discharged. Note that I have discussed this case with the hospitalist as well as with the urologist. Because of the patient's history of IV drug use and uncertain compliance, I think an expensive but perhaps better way to treat his infection involves the use of oritavancin. This will be a single IV infusion which would cover the Staph and Strep for at least a couple weeks and that should be adequate. To cover the E. Coli and any anaerobes which may be present, I would give 875 b.i.d. of Augmentin for about a week orally in addition to the oritavancin. As an alternative, one could substitute the Cipro. 2. ID will go ahead and sign off on this case at this time. Thank you very much. JOHN
[2016-11-29] MEDS: oxyCODONE-Acetamin 5-325 mg Tablet PO PRN ×2 (14:13→19:17)
--- NOTE | 2016-11-29 14:51 | PCM.DIMED ---
Discharge Instructions Date of Service Nov 29, 2016 Dates of Hospitalization Nov 26, 2016 at 03:31 Discharge Diagnosis Discharge Diagnosis # Acute Cellulitis of the penis; present on admission; ongoing # Type I diabetes; present on admission; ongoing # Polysubstance abuse with history of IV heroin and IV methamphetamine dependence, marijuana and other substances abuse. Present on admission. # Reported history of Hypertension # History of Depression. Stable. # dermatophytosis Diet Discharge Diet: Low fat, Low Sodium Activity Discharge Activity: Limited until seen by PCP Call your provider Call your provider for: Shortness of breath, Bleeding, Chest pain, Vomitting, Excessive diarrhea, Weakness (unilateral) Patient Instructions Patient Instructions You were hospitalized due to penile cellulitis . You received oritavancin ( long acting antibiotics ) .Please take Augmentin for 1 more day . Follow-up with PCP in: 1 week Marlo Albert MD Nov 29, 2016 14:51
[2016-11-29] MEDS ORDERED: AGM875T PO (14:52)
[2016-11-29] MEDS ORDERED: CLOT10PO TOPICAL (14:52)
[2016-11-29] MEDS ORDERED: OXYC1TAB24 PO (14:52)
--- NOTE | 2016-11-29 14:55 | NUR ---
Social Work: Discharge/Multidisciplinary Rounds D: EMR reviewed. Pt is on day 3 of hospitalization. Pt discussed in multidisciplinary rounds, and is medically stable for discharge. SW met with pt to complete CD assessment as ordered by MD. Pt declined resources. No other SW needs identified. Pt to discharge home with friends to transport via POV. No discharge needs identified. No other MD orders received. A: Pt who is independent at baseline. P: Pt to discharge home today with friends to transport via POV. No other discharge needs identified. No other MD orders received. SAE Tang
--- NOTE | 2016-11-29 15:37 | NUR ---
Pain/edema/infection Patient medicated for penile pain , penis is swollen, red and small amount drainage noted . Patient rates pain 10/10 when asked . Scrotum and penis elevated on towel and patient using ice intermittently for discomfort. Patient informed nurse this afternoon has ringworm on his abdomen which comes and goes intermittently which he acquired while in [facility] at one time. Pt to be discharged home later today.
--- NOTE | 2016-11-29 16:54 | PCM.DC.MED ---
Discharge Summary Date of Service Nov 29, 2016 Dates of Hospitalization Date of Hospital Admission Nov 26, 2016 at 03:31 Date of Discharge: Nov 29, 2016 Providers: Admitting Physician: Umang Baum MD Primary Care Physician: Other,Physician Attending Physician: Kendrick Rubin Diagnosis at Time of Discharge Diagnosis at Time of Discharge # Acute Cellulitis of the penis; present on admission; ongoing # Type I diabetes; present on admission; ongoing # Polysubstance abuse with history of IV heroin and IV methamphetamine dependence, marijuana and other substances abuse. Present on admission. # Reported history of Hypertension # History of Depression. Stable. # dermatophytosis Consultations ID Dr Lang urology dr Lacy Procedures XRay, CTs & MRIs CT pelvis with contrast was taken at [facility] but is not in [facility]. From transfer note the CT showed fluid accumulation at the base of the penis likely with a purulent drainage is coming from. Brief History per HPI 36-year-old male with a past medical history of type I diabetes and IV drug abuse most recently with methamphetamine, but history of heroin use as well, presents to the emergency department at [facility] due to penile pain, swelling, tenderness and erythema that started 2 days ago after sleeping with a "cock ring "on throughout the night. Patient states that he fell asleep with the ring in place and when he awoke his penis was discolored. Patient delayed presenting for medical treatment as he felt this would wear off. States that has been difficult to pass urine and that is getting progressively worse. He also states that there is pus coming from the end. He denies fever, chills, nausea, vomiting, diarrhea, or other systemic symptoms of infection. He does endorse some minor lower abdominal discomfort. Patient states that he has had 20 partners in the last month is unsure if any had STDs, exclusively with women. He states his never had an STD although he has been treated for unconfirmed chlamydia. Denies history of HIV or hepatitis C. His last injection was couple of days ago and included methamphetamine. He states he turned to methods to get off of Suboxone which she is to get off of heroin Patient was discussed with Dr. Lacy who agreed to see the patient. The patient was not transferred to [facility] for ongoing treatment. Blood work is located in the chart and below. Sodium of 138, potassium 3.8, chloride of 101, bicarbonate of 25, glucose of 290 , BUN of 22, creatinine 1.24 Lactic acid 1.4 Drug screen positive for methamphetamine, amphetamine, and THC WBC of 9, hemoglobin of 14.9, hematocrit of 42.6, platelets of 239, neutrophil percent is 70.5 Hospital Course 36-year-old male with history of type I diabetes, risky sexual practices, and IV drug abuse presents to the emergency department with 2 days of penile swelling, tenderness, purulence, and erythema. # Acute Cellulitis of the penis; present on admission; ongoing - Due to a penis ring which was left on for more than 12 hours - Foreskin piercing was reportedly removed prior to [facility] - Risky sexual practices with more than 20 partners over the last 30 days - Appreciate ID and urology consults. -Treated with IV Ceftaroline per ID recs. Received oritavancin . Discharged on Augmentin for 1 week. - Cultures performed at [facility] in [place] were followed upon by ID. The cultures grew finally MSSA group B Strep and a pansensitive E. coli. -Percocet for pain control # Type I diabetes; present on admission; ongoing - HgA1C 9.4 - Continue with home dose Insulin. - Medium-dose correctional with 5 units prandial insulin or per patient # Polysubstance abuse with history of IV heroin and IV methamphetamine dependence, marijuana and other substances abuse. Present on admission. - Monitor for signs or withdrawal - Social work referral - Continue with supportive care # Reported history of Hypertension - Currently controlled # History of Depression. Stable. - Continue sertraline Dispo: Discharge to home Condition on discharge stable Exam Vital Signs (Last) Date Time Temp Pulse Resp B/P Pulse Ox O2 Delivery O2 Flow Rate FiO2 11/29/16 12:40 36.7 76 20 147/89 97 Room Air Exam General: Alert, Cooperative, No Acute Distress Head: Normal Eyes: Scleral Anicteric Nose: Mucous Membr Moist/[place] Mouth: Mucous Membr Moist/[place] Neck: Supple Chest & Lungs: Chest Wall Normal, Clear to auscultation bilat Cardiovascular: Regular Rate/Rhythm Abdomen: Non-tender, Non-distended, Normoactive bowel tones, Soft Genitialial: Abnormal (penis distal to the brown ring is erythematous) Extremities: No cyanosis/clubbing/edema bilat Neurological: Grossly Neurologically Intact, Normal Speech Psych: Calm, appropriate Test 11/26/16 05:33 11/26/16 23:48 11/28/16 05:40 11/29/16 06:00 Hemoglobin A1c 9.4% (4.8-5.6) Lactic Acid Level 0.8mmol/L (0.4-2.0) Phosphorus Level 3.3mg/dL (2.5-4.9) Procalcitonin 0.36ng/mL (0.00-0.08) Rapid Plasma Reagin Non reactive (Non Reactive) Hepatitis A IgM Antibody Negative (Negative) Hepatitis B Surface Antigen Negative (Negative) Hepatitis B Core IgM Antibody Negative (Negative) Hepatitis C Antibody <0.1s/co ratio (0.0-0.9) Hepatitis C Comment Comment (.) HIV (1&2) Ag and Ab, 4th Generation Non reactive (Non Reactive) Urine Color Yellow (YELLOW) Urine Appearance Clear (CLEAR,HAZY) Urine pH 7.0 (5.0-8.0) Urine Specific [place] 1.020 (1.003-1.035) Urine Protein Negativemg/dL (NEG,TRACE) Urine Glucose (UA) >1000mg/dL (NEGATIVE) Urine Ketones Negativemg/dL (NEGATIVE) Urine Occult Blood Negative (NEGATIVE) Urine Nitrite Negative (NEGATIVE) Urine Bilirubin Negative (NEGATIVE) Urine Urobilinogen 1.0mg/dL (NORMAL) Urine Leukocyte Esterase Negative (NEGATIVE) Urine RBC 0-2/hpf (0-2) Urine WBC 0-5/hpf (0-5) Urine Epithelial Cells Occasional/hpf (NONE-MOD) Urine Crystals None seen (NONE SEEN) Urine Bacteria Few/hpf (NONE-FEW) Urine Hyaline Casts None/lpf (NONE) Urine Granular Casts None seen (NONE SEEN) Urine Waxy Casts None seen (NONE SEEN) Urine Red Blood Cell Casts None seen (NONE SEEN) Urine White Blood Cell Casts None seen (NONE SEEN) Urine Mucus Present (None Seen) Urine Trichomonas None seen (NONE SEEN) Urine Yeast None (NONE SEEN) Urinalysis Comment None Urine Culture Reflexed Not indicated White Blood Count 5.2th/mm3 (3.8-10.1) Red Blood Count 4.23mil/mm3 (4.40-5.80) Hemoglobin 12.9g/dL (13.8-17.2) Hematocrit 37.8% (41.0-50.0) Mean Corpuscular Volume 89.4fL (81-100) Mean Corpuscular Hemoglobin 30.5pg (27.0-35.0) Mean Corpuscular Hemoglobin Concent 34.1% (32.0-37.0) Red Cell Distribution Width 11.7% (12.3-15.4) Platelet Count 217bil/L (150-400) Neutrophils (%) (Auto) 56.2% (40-74) Lymphocytes (%) (Auto) 32.2% (14-46) Monocytes (%) (Auto) 8.3% (4-12) Eosinophils (%) (Auto) 2.5% (0-5) Basophils (%) (Auto) 0.4% (0-3) Sodium Level 139mEq/L (134-144) Potassium Level 3.8mEq/L (3.5-5.2) Chloride Level 100mEq/L (97-108) Carbon Dioxide Level 21mmol/L (18-29) Blood Urea Nitrogen 16mg/dL (6-20) Creatinine 0.94mg/dL (0.76-1.27) Estimat Glomerular Filtration Rate 97mL/min (>59) Glucose Level 215mg/dL (60-99) Calcium Level 8.8mg/dL (8.5-10.1) Magnesium Level 1.9mg/dL (1.6-2.6) Discharge Medications Discharge Medications Amoxicillin/Clav K 875-125 mg (Amoxicillin/Clav K 875-125 mg) 875 Mg Tab 1 TAB PO BID Prescribed by: MARLO ALBERT MD Clotrimazole (Clotrimazole) 10 Gm Powder 10 GM TOPICAL BID Prescribed by: MARLO ALBERT MD Insulin Glargine (Lantus U100 Insulin Vial) 100 Unit/Ml Vial 30 UNIT SUBQ BID continue with current basil insulin 30 units bid. Prescribed by: TIA MCCOY PA-C Insulin Human Lispro (HumaLOG U100 Insulin Vial) 100 Unit/Ml Unit 0 SUBQ TID- INSULIN Check blood sugars before meals and at bedtime. Use correction factor only before meals. Blood Sugar Lispro Correction: <151, 0 units; 151-175, 1 unit; 176-200, 2 units; 201-225, 3 units; 226-250, 4 units; 251-275, 5 units; 276-300 , 6 units; 301-325, 7 units; 326-350, 8 units; 351-375, 9 units; 376-400, 10 units; >400, 12 units. Prescribed by: TIA MCCOY PA-C Sertraline HCl (Sertraline) 50 Mg Tablet 50 MG PO DAILY (Reported) As needed Docusate Sodium (Colace) 50 Mg Capsule 50 MG PO BID PRN PRN For Constipation Prescribed by: TIA MCCOY PA-C oxyCODONE-Acetaminophen 5-325 mg (oxyCODONE-Acetaminophen 5-325 mg) 1 Each Tablet 1-2 TAB PO Q4H PRN PRN For Pain Prescribed by: MARLO ALBERT MD Followup Plan Disposition: Home Discharge Diet: Low fat, Low Sodium Discharge Activity: Limited until seen by PCP Patient Instructions You were hospitalized due to penile cellulitis . You received oritavancin ( long acting antibiotics ) .Please take Augmentin for 1 more day . Follow-up with PCP in: 1 week Time spent 35 minutes counseling on Diabetes control and STD Marlo Albert MD Nov 29, 2016 16:54
--- NOTE | 2016-11-29 20:20 | NUR ---
Discharge Patient is alert and oriented. Patient showered before discharged. Prescriptions, patient instructions, medication schedule, and follow-up appointment reviewed with patient. Patient to follow up with PCP in 1 week. Patient's belongings unlocked and returned to patient. Patient discharged with friends.
== END 2016-11-29 20:20 | disposition home or self-care (01) | DRG 728 ==
LOC: OSC 03:31
PROVIDERS: ADMIT Hospitalist; ATTEND Internal Medicine
DX: N48.22 Cellulitis of corpus cavernosum and penis (principal); F32.9 Major depressive disorder, single episode, unspecified; F17.210 Nicotine dependence, cigarettes, uncomplicated; E10.9 Type 1 diabetes mellitus without complications; F19.10 Other psychoactive substance abuse, uncomplicated